=== PATIENT | female | born 1985 | race Caucasian/White ===

== ENCOUNTER 2021-05-08 13:32 | Emergency (ER) | payer OTHER ==
[2021-05-08 15:04] LABS: BASOPHIL 0.7 % (0-2); EOSINOPHIL 2.4 % (0-5); HCT 43.4 % (37.0-47.0); HGB 14.8 g/dl (12.5-16.0); LYMPHOCYTE 29.3 % (15-48); MCH 30.6 pg (25.0-31.0); MCHC 34.1 g/dL (32.0-36.0); MCV 89.7 fL (78.0-100.0); MONOCYTE 6.9 % (0-12); MPV 11.3 fL (6.0-9.5); NEUTROPHIL 60.4 % (41-80); NRBC 0; PLT 164 K/uL (150-400); RBC 4.84 M/uL (4.20-5.40); WBC 5.8 K/uL (4.0-10.5)
[2021-05-08 15:08] LABS: BILIRUBIN NEGATIVE (NEGATIVE); BLOOD 3+ Ery/uL (NEGATIVE); COLOR YELLOW (YELLOW); GLUCOSE (U) 3+ mg/dL (NORMAL); LEUKOCYTES TRACE Leu/uL (NEGATIVE); NITRITE NEGATIVE (NEGATIVE); PROTEIN 1+ mg/dL (NEGATIVE); SPECIFIC GRAVITY 1.015 (1.001-1.030); UROBILINOGEN 0.2 mg/dL (0.2-1.0)
[2021-05-08 15:12] LABS: CLARITY HAZY (CLEAR)
[2021-05-08 15:21] LABS: CREATININE 0.57 mg/dL (0.51-0.95); POTASSIUM 3.8 mmol/L (3.5-5.1)
[2021-05-08 15:46] LABS: BACTERIA TRACE; SQUAMOUS EPITHELIAL CELLS RARE
== END 2021-05-08 16:53 | disposition home or self-care (01) ==
LOC: FER 13:32
PROVIDERS: Nurse Practitioner Family
DX: N93.9 Abnormal uterine and vaginal bleeding, unspecified (principal); S37.69XA Other injury of uterus, initial encounter; E11.9 Type 2 diabetes mellitus without complications; I10 Essential (primary) hypertension; Z98.890 Other specified postprocedural states; Z88.8 Allergy status to other drugs, medicaments and biological substances; X58.XXXA Exposure to other specified factors, initial encounter
CPT/HCPCS: 36415; 80048; 81001; 85025; 87088; 99284

== ENCOUNTER → 2021-07-06 | Day surgery (SDC) | payer OTHER ==
[~2021-07-06] VITALS: Ht 167.6 cm; Wt 79.5 kg
[~2021-07-06] MED LIST: IBUPROFEN800 M1 PO
[2021-07-06 11:04] LABS: HCG (URINE) SCREEN NEGATIVE (NEGATIVE)
[2021-07-06 11:51] LABS: ALBUMIN 3.3 g/dL (3.4-5.0); BILIRUBIN - TOTAL 0.4 mg/dL (0.2-1.0); BUN/CREAT RATIO (CALC) 32.6 RATIO; CREATININE 0.43 mg/dL (0.51-0.95); GLOBULIN (CALCULATION) 3.3 g/dL; POTASSIUM 4.3 mmol/L (3.5-5.1); TOTAL PROTEIN 6.6 g/dL (6.4-8.2)
== END | disposition home or self-care (01) ==
LOC: FAS 10:31
PROVIDERS: Obstetrics & Gynecology
DX: N92.0 Excessive and frequent menstruation with regular cycle (principal); Z98.51 Tubal ligation status; J45.909 Unspecified asthma, uncomplicated; E11.9 Type 2 diabetes mellitus without complications; K21.9 Gastro-esophageal reflux disease without esophagitis; E03.9 Hypothyroidism, unspecified; G43.909 Migraine, unspecified, not intractable, without status migrainosus; I10 Essential (primary) hypertension; Z88.8 Allergy status to other drugs, medicaments and biological substances; F17.210 Nicotine dependence, cigarettes, uncomplicated; N84.0 Polyp of corpus uteri; E66.3 Overweight; Z68.27 Body mass index [BMI] 27.0-27.9, adult; K59.00 Constipation, unspecified
CPT/HCPCS: 36415; 80053; 84703; 93005; J1885; J2250; J2405; J2704; J3010; J7120

== ENCOUNTER 2022-04-09 19:54 | Emergency (ER) | payer OTHER ==
[2022-04-09 21:11] LABS: CORONAVIRUS 2019 SARS-COV-2 NEGATIVE (NEGATIVE); INFLUENZA A NAA POSITIVE (NEGATIVE)
== END 2022-04-09 21:31 | disposition home or self-care (01) ==
LOC: FER 19:54
PROVIDERS: Nurse Practitioner Family
DX: J10.89 Influenza due to other identified influenza virus with other manifestations (principal); B34.9 Viral infection, unspecified; M79.10 Myalgia, unspecified site; E11.9 Type 2 diabetes mellitus without complications; F17.210 Nicotine dependence, cigarettes, uncomplicated; Z88.0 Allergy status to penicillin; Z20.822 Contact with and (suspected) exposure to COVID-19; Z79.84 Long term (current) use of oral hypoglycemic drugs; Z28.310 Unvaccinated for COVID-19
CPT/HCPCS: 71045; U0002

== ENCOUNTER → 2022-05-16 | Day surgery (SDC) | payer OTHER | END | disposition home or self-care (01) | LOC: FIS 17:30 | DX: S91.331A Puncture wound without foreign body, right foot, initial encounter (principal) | CPT/HCPCS: 73630 ==

== ENCOUNTER 2022-07-28 15:01 | Emergency (ER) | payer OTHER ==
[2022-07-28] MEDS ORDERED: CYCLOBENZAPRINE10 MG PO (19:08)
[2022-07-28] MEDS ORDERED: IBUPROFEN800 MG PO (19:08)
== END 2022-07-28 19:20 | disposition home or self-care (01) ==
LOC: FER 15:01
DX: S50.01XA Contusion of right elbow, initial encounter (principal); S30.0XXA Contusion of lower back and pelvis, initial encounter; F17.210 Nicotine dependence, cigarettes, uncomplicated; E11.9 Type 2 diabetes mellitus without complications; K21.9 Gastro-esophageal reflux disease without esophagitis; E78.5 Hyperlipidemia, unspecified; Z28.310 Unvaccinated for COVID-19; Z79.84 Long term (current) use of oral hypoglycemic drugs; Z79.899 Other long term (current) drug therapy; W01.0XXA Fall on same level from slipping, tripping and stumbling without subsequent striking against object, initial encounter; Y93.01 Activity, walking, marching and hiking; Y92.830 Public park as the place of occurrence of the external cause
CPT/HCPCS: 72100; 72220; 73030; 73060